=== PATIENT | male | born 1960 | race Two or more races ===

== ENCOUNTER 2018-05-15 01:38 | Emergency (ER) | payer OTHER ==
[~2018-05-15] VITALS: Ht 167.6 cm; Wt 72.6 kg
--- NOTE | 2018-05-15 01:50 | NUR ---
ED Nurse Note: pt brought in by [facility] c/o BLE pain, pt states he has been having pain for long time and has wound with swelling. cap refill <3sec. Noted subcutaneous redness and swelling with deadskin on bLE. ERMD at the bedside, will cont monitor. [facility] states [facility] is [facility] will [facility].
--- NOTE | 2018-05-15 02:03 | Emergency Room Report ---
History of Present Illness General Chief Complaint: Lower Extremity Injury Source: Patient, EMS Present Illness HPI Is a 57-year-old male with a history of alcohol abuse. He also has history of chronic lymphedema with chronic leg pain. He presents with chief complaint of leg pain. He call from a nearby restaurant. He said pain going on for years. Denies any fever chills denies any nausea vomiting. Pain is 10 out of 10. Worse with walking. Denies any trauma. No drainage. Allergies: Coded Allergies: No Known Allergies (Unverified , 05/15/18) Patient History Past Medical History: see triage record, old chart reviewed Past Surgical History: other Pertinent Family History: none Social History: Reports: alcohol use; Denies: smoking Immunizations: other Reviewed Nursing Documentation: PMH: Agreed; PSxH: Agreed Nursing Documentation-PMH Hx Diabetes: Yes Review of Systems Eye: Denies: eye pain, blurred vision ENT: Denies: ear pain, nose congestion, throat swelling Respiratory: Denies: cough, shortness of breath Cardiovascular: Denies: chest pain, palpitations Gastrointestinal: Denies: abdominal pain, diarrhea, nausea, vomiting Musculoskeletal: Reports: muscle pain; Denies: back pain, joint pain Skin: Denies: rash Neurological: Denies: headache, numbness Endocrine: Denies: increased thirst, increased urine Hematologic/Lymphatic: Denies: easy bruising All Other Systems: negative except mentioned in HPI Physical Exam Vital Signs Date Time Temp Pulse Resp B/P (MAP) Pulse Ox O2 Delivery O2 Flow Rate FiO2 05/15/18 01:39 98.2 100 16 149/82 Room Air vitals unremarkable Sp02 EP Interpretation: reviewed, normal General Appearance: well appearing, no apparent distress, alert Head: normocephalic, atraumatic Eyes: bilateral eye PERRL, bilateral eye EOMI ENT: hearing grossly normal, normal pharynx Neck: full range of motion, supple, no meningismus Respiratory: chest non-tender, lungs clear, normal breath sounds Cardiovascular #1: regular rate, rhythm, no murmur Gastrointestinal: normal bowel sounds, non tender, no mass, no organomegaly, no bruit, non-distended Musculoskeletal: back normal, swelling - Chronic lymphedema. He has ulceration to the lower extremity from the lymphedema. He has or dressing has not been changed for a while. There is no new purulent drainage. Diffuse tenderness. Neurologic: alert, oriented x3 Psychiatric: mood/affect normal Skin: warm/dry Medical Decision Making Diagnostic Impression: Primary Impression: Cellulitis of left lower extremity without foot Additional Impressions: Lymphedema of both lower extremities Alcohol intoxication Qualified Codes: F10.920 - Alcohol use, unspecified with intoxication, uncomplicated ER Course Patient presents with chronic lymphedema to his lower extremity. His right lower extremity showed no drainage. Left extremity shows some ulceration laterally no obvious drainage. Higher risk for infection. We'll put him on antibiotics. He admits to alcohol use tonight. he is intoxicated. We will let him sleep it off and discharge in the morning. Patient said he does not want to go to a fpc. Last Vital Signs Date Time Temp Pulse Resp B/P (MAP) Pulse Ox O2 Delivery O2 Flow Rate FiO2 05/15/18 01:39 98.2 100 16 149/82 Room Air Status: improved Disposition: HOME, SELF-CARE Condition: Stable Scripts Ibuprofen* (MOTRIN*) 600 Mg Tablet 600 MG ORAL THREE TIMES A DAY, #30 TAB 0 Refills Prov: Malick Coughlin MD 05/15/18 Levofloxacin* (LEVAQUIN*) 500 Mg Tablet 500 MG ORAL DAILY, #7 TAB Prov: Malick Coughlin MD 05/15/18 Additional Instructions: Elevate leg. Change dressing daily. Follow-up with your doctor in 7 days. Return if symptom worsen. Malick Coughlin MD May 15, 2018 02:03
--- NOTE | 2018-05-15 02:08 | NUR ---
ED Nurse Note: pt refusing wound cleaning, stating it hurts too much, quality tech done wound care, dressing applied.
[2018-05-15] MEDS ORDERED: Levofloxacin 500mg tab ORAL ONE (02:30)
[2018-05-15] MEDS ORDERED: IBUPROFEN600 MG ORAL (02:31)
[2018-05-15] MEDS ORDERED: LEVAQUIN500 MG ORAL (02:31)
--- NOTE | 2018-05-15 03:10 | NUR ---
ED Nurse Note: report given to Jaron BOWERpropellant charge zone assembler nurse and endorsed care, plan d/c in am per ERMD.
[2018-05-15 03:30] VITALS: BP 145/79
--- NOTE | 2018-05-15 03:30 | NUR ---
ED Nurse Note: report received from PEGGY Salmeron. pt is currently asleep, no acute distress on room air.
--- NOTE | 2018-05-15 05:00 | NUR ---
ED Nurse Note: pt still asleep at this time
[2018-05-15 05:24] VITALS: BP 151/87
--- NOTE | 2018-05-15 05:56 | NUR ---
ED Nurse Note: pt is now awake, pt provided address in which he wants to be transported too. pt denies pain at this time. pt vss at the moment. bilateral lower extremity dressings are dry, clean, and intact. pt cap refill is <3 seconds. pt is aox4.
--- NOTE | 2018-05-15 06:06 | NUR ---
ED Nurse Note: Pt was provided socks and pt refused.
[2018-05-15 06:23] VITALS: BP 151/87
--- NOTE | 2018-05-15 06:25 | NUR ---
ER DISCHARGE NOTE: Patient is cleared to be discharged per ERMD, pt is aox4, on room air, with stable vital signs. pt was given dc and prescription instructions, pt was able to verbalize understanding, pt id band removed. pt is able to ambulate with steady gait with cane. pt took all belongings. pt was given a taxi voucher and was provided food and juice
== END 2018-05-15 06:23 | disposition home or self-care (01) ==
LOC: EDBD 01:38 → EMR 01:52
DX: L03.116 Cellulitis of left lower limb (principal); I89.0 Lymphedema, not elsewhere classified; F10.920 Alcohol use, unspecified with intoxication, uncomplicated; E11.9 Type 2 diabetes mellitus without complications
CPT/HCPCS: 99283